=== PATIENT | female | born 1930 | race Caucasian/White ===

== ENCOUNTER 2016-10-31 10:08 | Outpatient (RCR) | payer MEDICARE, BC ==
[2016-10-25 06:32] VITALS: BP 159/64
[~2016-10-31 10:08] MED LIST: ASPIRIN 32325 MG/TAB PO; BISACODYL10 M1 RC; CALCIUM CARBON600 M1 PO; COLACE 100100 MG/CAP PO; FEOSOL325 MG PO; GOOD NEIGH1200 MG/15 PO; HCTZ 25MG25 MG PO; IRON 100 PLUS 21 TAB PO; LATANOPROST 2.2.5 ML OP; METFORMIN ER500 MG PO; PIOGLITAZONE HC30 MG PO; TIMOLOL MALEATE10 ML OP; TOPCARE PAIN R325 MG PO
[2016-11-01] MEDS ORDERED: TIMOLOL MALEATE10 ML OD (08:26)
== END 2017-01-08 09:20 | disposition home or self-care (01) ==
LOC: PT 10:08
DX: Z47.1 Aftercare following joint replacement surgery (principal); Z96.641 Presence of right artificial hip joint

== ENCOUNTER → 2016-12-05 | Outpatient (CLI) | payer MEDICARE, BC ==
[~2016-12-05] MED LIST changes: +ALEVE220 M1 PO; +TIMOLOL MALEATE10 ML OD
== END ==
LOC: LAB 10:09
DX: E11.9 Type 2 diabetes mellitus without complications (principal); I10 Essential (primary) hypertension

== ENCOUNTER 2017-06-08 11:24 | Emergency (ER) | payer MEDICARE, BC ==
[~2017-06-08] VITALS: Wt 50.0 kg
[~2017-06-08 11:24] MED LIST changes: -ALEVE220 M1 PO
[2017-06-08] MEDS ORDERED: ALEVE220 M1 PO (11:38)
[2017-06-08 16:46] VITALS: BP 146/78
== END 2017-06-08 16:45 | disposition other institution (70) ==
LOC: ED 11:24
DX: S72.492A Other fracture of lower end of left femur, initial encounter for closed fracture (principal); S82.832A Other fracture of upper and lower end of left fibula, initial encounter for closed fracture; W01.198A Fall on same level from slipping, tripping and stumbling with subsequent striking against other object, initial encounter; Y92.22 Religious institution as the place of occurrence of the external cause; I10 Essential (primary) hypertension; E11.9 Type 2 diabetes mellitus without complications; Z96.643 Presence of artificial hip joint, bilateral; M81.0 Age-related osteoporosis without current pathological fracture
CPT/HCPCS: J3010

== ENCOUNTER 2017-06-08 16:47 | Inpatient (IN) | payer MEDICARE, BC ==
[~2017-06-08] VITALS: Ht 160 cm; Wt 56.6 kg
[~2017-06-08 16:47] MED LIST changes: +ALEVE220 M1 PO
[2017-06-08 17:45] VITALS: BP 155/72
[2017-06-08 18:36] VITALS: BP 155/72
[2017-06-08 22:34] VITALS: BP 127/61
[2017-06-09 02:59] VITALS: BP 108/53
[2017-06-09 06:26] VITALS: BP 126/59
[2017-06-09 10:54] VITALS: BP 148/69
[2017-06-09 15:29] VITALS: BP 98/46
[2017-06-09 18:00] VITALS: BP 105/46; BP 133/56
[2017-06-09 22:37] VITALS: BP 113/55
[2017-06-10 03:01] VITALS: BP 106/55
[2017-06-10 06:20] VITALS: BP 121/56
[2017-06-10 11:09] VITALS: BP 124/57
[2017-06-10 15:08] VITALS: BP 110/58
[2017-06-10 18:15] VITALS: BP 117/50
[2017-06-10 23:01] VITALS: BP 109/54
[2017-06-11 03:00] VITALS: BP 119/52
[2017-06-11 06:19] VITALS: BP 147/74
[2017-06-11 11:16] VITALS: BP 131/68
[2017-06-11 15:14] VITALS: BP 138/66
[2017-06-11 18:04] VITALS: BP 113/52
[2017-06-11 23:21] VITALS: BP 139/64
[2017-06-12 02:58] VITALS: BP 134/54
[2017-06-12 06:22] VITALS: BP 118/66
[2017-06-12 11:20] VITALS: BP 117/57
[2017-06-12 15:11] VITALS: BP 111/51
[2017-06-12 18:16] VITALS: BP 128/58
[2017-06-12 23:09] VITALS: BP 111/54
[2017-06-13 02:46] VITALS: BP 121/52
[2017-06-13 06:33] VITALS: BP 121/59
== END 2017-06-13 07:33 | disposition swing bed (61) | DRG 543 ==
LOC: MED/SURG 16:47
PROVIDERS: ADMIT Family Medicine
DX: M80.052A Age-related osteoporosis with current pathological fracture, left femur, initial encounter for fracture (principal); N39.0 Urinary tract infection, site not specified; E87.1 Hypo-osmolality and hyponatremia; D62 Acute posthemorrhagic anemia; M80.062A Age-related osteoporosis with current pathological fracture, left lower leg, initial encounter for fracture; S82.65XA Nondisplaced fracture of lateral malleolus of left fibula, initial encounter for closed fracture; M81.0 Age-related osteoporosis without current pathological fracture; I10 Essential (primary) hypertension; E11.9 Type 2 diabetes mellitus without complications; K56.41 Fecal impaction; W01.0XXA Fall on same level from slipping, tripping and stumbling without subsequent striking against object, initial encounter; Y92.22 Religious institution as the place of occurrence of the external cause; Z96.643 Presence of artificial hip joint, bilateral
CPT/HCPCS: J0595; J0696; J1650; J1815; J1885; J2405; J3480; J7030

== ENCOUNTER 2017-06-12 16:53 | Inpatient (IN) | payer MEDICARE, BC ==
[~2017-06-12] VITALS: Ht 160 cm; Wt 48.0 kg
[2017-06-13 10:08] VITALS: BP 112/51
[2017-06-13 10:11] VITALS: BP 112/51
[2017-06-13 18:31] VITALS: BP 132/58
[2017-06-14 06:21] VITALS: BP 123/56
[2017-06-14 18:36] VITALS: BP 142/60
[2017-06-15 06:39] VITALS: BP 118/43
[2017-06-15 18:09] VITALS: BP 149/59
[2017-06-16 06:29] VITALS: BP 115/45; BP 132/52
[2017-06-16 18:00] VITALS: BP 144/54
[2017-06-17 06:38] VITALS: BP 153/56
[2017-06-17 18:22] VITALS: BP 158/58
[2017-06-18 06:35] VITALS: BP 134/55
[2017-06-18 18:23] VITALS: BP 148/55
[2017-06-19 06:18] VITALS: BP 151/59
[2017-06-19 18:48] VITALS: BP 152/57
[2017-06-20 06:18] VITALS: BP 150/65
[2017-06-20 18:04] VITALS: BP 166/56
[2017-06-21 06:18] VITALS: BP 131/52
[2017-06-21 18:01] VITALS: BP 137/53
[2017-06-22 06:25] VITALS: BP 149/59
[2017-06-22 18:22] VITALS: BP 126/53
[2017-06-23 06:27] VITALS: BP 134/54
[2017-06-23 18:00] VITALS: BP 148/65
[2017-06-24 06:29] VITALS: BP 137/50
[2017-06-24 18:34] VITALS: BP 152/67
[2017-06-25 06:27] VITALS: BP 128/55
[2017-06-25 18:18] VITALS: BP 137/50
[2017-06-26 06:25] VITALS: BP 145/59
[2017-06-26 18:02] VITALS: BP 158/66
[2017-06-27 06:31] VITALS: BP 129/46
[2017-06-27 18:16] VITALS: BP 156/59
[2017-06-28 06:24] VITALS: BP 156/66
[2017-06-28 18:37] VITALS: BP 134/53
[2017-06-29 06:28] VITALS: BP 156/66
[2017-06-29 18:57] VITALS: BP 155/60
[2017-06-30 06:30] VITALS: BP 137/63
[2017-06-30 18:56] VITALS: BP 154/52
[2017-07-01 06:32] VITALS: BP 133/50
[2017-07-01 18:08] VITALS: BP 151/56
[2017-07-02 06:37] VITALS: BP 135/62
[2017-07-02 18:00] VITALS: BP 150/57
[2017-07-03 06:38] VITALS: BP 132/61
[2017-07-03 18:29] VITALS: BP 145/60
[2017-07-04 06:29] VITALS: BP 159/68
[2017-07-04 18:24] VITALS: BP 145/59
[2017-07-05 06:26] VITALS: BP 118/80
[2017-07-05 19:00] VITALS: BP 133/54
[2017-07-06 06:21] VITALS: BP 127/54
[2017-07-06 18:26] VITALS: BP 151/58
[2017-07-07 06:43] VITALS: BP 122/50
[2017-07-07 18:00] VITALS: BP 150/57
[2017-07-08 06:22] VITALS: BP 143/57
[2017-07-08 18:13] VITALS: BP 139/59
[2017-07-09 06:31] VITALS: BP 141/56
[2017-07-09 18:22] VITALS: BP 123/55
[2017-07-10 06:20] VITALS: BP 131/61
[2017-07-10 19:17] VITALS: BP 127/58
[2017-07-11 06:53] VITALS: BP 142/57
[2017-07-11 18:24] VITALS: BP 157/55
[2017-07-12 07:22] VITALS: BP 154/45
[2017-07-12 18:51] VITALS: BP 126/62
[2017-07-13 06:45] VITALS: BP 140/62
[2017-07-13 18:10] VITALS: BP 146/54
[2017-07-14 06:28] VITALS: BP 155/56
[2017-07-14 18:31] VITALS: BP 133/48
[2017-07-15 06:31] VITALS: BP 115/57
[2017-07-15 18:23] VITALS: BP 142/53
[2017-07-16 06:33] VITALS: BP 141/58
[2017-07-16 18:24] VITALS: BP 147/63
[2017-07-17 06:23] VITALS: BP 136/56
[2017-07-17 18:40] VITALS: BP 133/51
[2017-07-18 06:28] VITALS: BP 151/49
[2017-07-18 18:37] VITALS: BP 128/50
[2017-07-19 06:27] VITALS: BP 144/62
[2017-07-19 18:33] VITALS: BP 138/51
[2017-07-20 06:33] VITALS: BP 155/52
[2017-07-20 18:12] VITALS: BP 139/50
[2017-07-21 06:35] VITALS: BP 121/56
[2017-07-21 18:16] VITALS: BP 127/44
[2017-07-22 06:21] VITALS: BP 137/63
[2017-07-22 18:00] VITALS: BP 131/51
[2017-07-23 06:24] VITALS: BP 138/58
[2017-07-23 18:20] VITALS: BP 141/55
[2017-07-24 07:29] VITALS: BP 128/52
[2017-07-24 18:53] VITALS: BP 133/52
[2017-07-25 06:47] VITALS: BP 139/61
[2017-07-25 18:19] VITALS: BP 143/52
[2017-07-26 06:30] VITALS: BP 137/56
[2017-07-26 17:54] VITALS: BP 142/58
[2017-07-27 06:52] VITALS: BP 134/47
[2017-07-27 18:28] VITALS: BP 127/54
[2017-07-28 06:42] VITALS: BP 134/49
[2017-07-28 18:41] VITALS: BP 139/52
[2017-07-29 06:03] VITALS: BP 126/41
[2017-07-29 18:37] VITALS: BP 140/50
[2017-07-30 06:46] VITALS: BP 119/50
[2017-07-30 18:23] VITALS: BP 145/56
[2017-07-31 06:33] VITALS: BP 140/57
[2017-07-31 18:18] VITALS: BP 125/37
[2017-08-01 06:21] VITALS: BP 136/53
[2017-08-01 18:18] VITALS: BP 136/55
[2017-08-02 06:28] VITALS: BP 130/61
[2017-08-02 18:22] VITALS: BP 138/54
[2017-08-03 06:43] VITALS: BP 132/62
[2017-08-03 18:32] VITALS: BP 144/64
[2017-08-04 06:47] VITALS: BP 124/57
[2017-08-04 18:23] VITALS: BP 142/54
[2017-08-05 06:26] VITALS: BP 115/52
[2017-08-05 18:59] VITALS: BP 129/49
[2017-08-06 06:27] VITALS: BP 136/64
[2017-08-06 17:52] VITALS: BP 148/53
[2017-08-07 06:29] VITALS: BP 150/61
[2017-08-07 18:36] VITALS: BP 143/56
[2017-08-08 06:21] VITALS: BP 125/52
[2017-08-08 18:31] VITALS: BP 149/79
[2017-08-09 06:25] VITALS: BP 127/48
[2017-08-09 18:08] VITALS: BP 129/48
[2017-08-10 05:30] VITALS: BP 139/55
[2017-08-10 18:22] VITALS: BP 152/60
[2017-08-11 06:13] VITALS: BP 138/45
[2017-08-11 17:48] VITALS: BP 126/49
[2017-08-12 06:42] VITALS: BP 148/57
[2017-08-12] MEDS ORDERED: GLUCOPHAGE PO (08:53)
[2017-08-12 18:13] VITALS: BP 114/53
[2017-08-13 06:39] VITALS: BP 141/51
[2017-08-13 18:31] VITALS: BP 138/48
[2017-08-14 06:41] VITALS: BP 151/58
[2017-08-14] MEDS ORDERED: MULTIVIT PO (07:16)
== END 2017-08-14 09:20 | disposition home health service (06) | DRG 560 ==
LOC: PACU 16:53 → MED/SURG 19:11
PROVIDERS: ADMIT Nurse Practitioner Family
DX: S72.92XD Unspecified fracture of left femur, subsequent encounter for closed fracture with routine healing (principal); N39.0 Urinary tract infection, site not specified; D62 Acute posthemorrhagic anemia; S82.62XD Displaced fracture of lateral malleolus of left fibula, subsequent encounter for closed fracture with routine healing; Z66 Do not resuscitate; L89.622 Pressure ulcer of left heel, stage 2; I10 Essential (primary) hypertension; E11.9 Type 2 diabetes mellitus without complications; M80.852D Other osteoporosis with current pathological fracture, left femur, subsequent encounter for fracture with routine healing; W01.0XXD Fall on same level from slipping, tripping and stumbling without subsequent striking against object, subsequent encounter; B96.20 Unspecified Escherichia coli [E. coli] as the cause of diseases classified elsewhere; Z79.4 Long term (current) use of insulin; R53.81 Other malaise
CPT/HCPCS: J0696; J1650; J1815; L4360

== ENCOUNTER → 2017-08-22 | Outpatient (CLI) | payer MEDICARE, BC ==
[2017-08-14 06:41] VITALS: BP 151/58
[~2017-08-22] MED LIST changes: +GLUCOPHAGE PO; +MULTIVIT PO
== END ==
LOC: LAB 12:41
DX: D64.9 Anemia, unspecified (principal)

== ENCOUNTER → 2017-08-28 | Outpatient (CLI) | payer MEDICARE, BC ==
[2017-08-14 06:41] VITALS: BP 151/58
== END ==
LOC: RAD 12:16
DX: M79.672 Pain in left foot (principal); M85.872 Other specified disorders of bone density and structure, left ankle and foot; M25.572 Pain in left ankle and joints of left foot

== ENCOUNTER → 2017-09-19 | Outpatient (CLI) | payer MEDICARE, BC ==
[2017-09-19 12:35] LABS: ALBUMIN 4.3 g/dL (3.5-5.0); BUN/CREATININE RATIO 29.4 (6.0-26.0); CALCIUM 10.8 mg/dL (8.4-10.2); POTASSIUM 4.8 mmol/L (3.6-5.0); TOTAL BILIRUBIN 0.9 mg/dL (0.2-1.3); TOTAL PROTEIN 7.7 g/dL (6.3-8.2)
[2017-09-19 13:46] LABS: EOS # 0.1 (0.04-0.40); EOS % 1.5 % (1.0-5.0); HEMATOCRIT 34.2 % (37.0-47.0); HEMOGLOBIN 10.6 g/dL (12.5-16.0); LYMPH# 1.9 (1.50-4.00); MEAN CELL VOLUME 89 fl (78-100); MEAN CORPUSCULAR HEMOGLOBIN 28 pg (27-31); MEAN CORPUSCULAR HGB CONC 31 g/dL (33-37); MEAN PLATELET VOLUME 10.2 fl (7.4-10.4); MONO # 0.6 (0.20-0.80); NEU # 2.6 (1.40-6.50); PLATELET COUNT 235 K/mm3 (130-400); RED BLOOD COUNT 3.84 M/mm3 (4.10-5.30); RED CELL DISTRIBUTION WIDTH 13.9 % (11.5-14.5); WHITE BLOOD COUNT 5.2 K/mm3 (4.8-10.8)
== END ==
LOC: LAB 12:08
PROVIDERS: Internal Medicine
DX: E11.9 Type 2 diabetes mellitus without complications (principal); I10 Essential (primary) hypertension

== ENCOUNTER → 2018-01-01 | Outpatient (CLI) | payer MEDICARE, BC ==
[2018-01-01 10:22] LABS: EOS # 0.1 (0.04-0.40); EOS % 3.1 % (1.0-5.0); HEMATOCRIT 38.6 % (37.0-47.0); HEMOGLOBIN 11.6 g/dL (12.5-16.0); LYMPH# 1.1 (1.50-4.00); MEAN CELL VOLUME 90 fl (78-100); MEAN CORPUSCULAR HEMOGLOBIN 27 pg (27-31); MEAN CORPUSCULAR HGB CONC 30 g/dL (33-37); MEAN PLATELET VOLUME 10.1 fl (7.4-10.4); MONO # 0.5 (0.20-0.80); NEU # 2.4 (1.40-6.50); PLATELET COUNT 217 K/mm3 (130-400); RED BLOOD COUNT 4.29 M/mm3 (4.10-5.30); RED CELL DISTRIBUTION WIDTH 14.9 % (11.5-14.5); WHITE BLOOD COUNT 4.2 K/mm3 (4.8-10.8)
[2018-01-01 10:23] LABS: ALBUMIN 4.1 g/dL (3.5-5.0); BUN/CREATININE RATIO 23.9 (6.0-26.0); POTASSIUM 3.9 mmol/L (3.6-5.0); TOTAL PROTEIN 7.1 g/dL (6.3-8.2)
== END ==
LOC: LAB 09:54
PROVIDERS: Internal Medicine
DX: E11.9 Type 2 diabetes mellitus without complications (principal); I10 Essential (primary) hypertension; D64.9 Anemia, unspecified; Z88.5 Allergy status to narcotic agent; Z88.2 Allergy status to sulfonamides

== ENCOUNTER → 2018-03-12 | Outpatient (CLI) | payer MEDICARE, BC | LOC: MAMMO 08:51 → RAD 09:15 | DX: Z13.820 Encounter for screening for osteoporosis (principal); M81.0 Age-related osteoporosis without current pathological fracture; Z88.5 Allergy status to narcotic agent; Z88.2 Allergy status to sulfonamides ==

== ENCOUNTER → 2018-04-13 | Outpatient (CLI) | payer MEDICARE, BC ==
[2018-04-13 17:19] LABS: ALBUMIN 4.3 g/dL (3.5-5.0); BUN/CREATININE RATIO 37.1 (6.0-26.0); CALCIUM 9.9 mg/dL (8.4-10.2); POTASSIUM 4.5 mmol/L (3.6-5.0); TOTAL BILIRUBIN 0.7 mg/dL (0.2-1.3); TOTAL PROTEIN 7.2 g/dL (6.3-8.2)
== END ==
LOC: RAD 15:19
PROVIDERS: Internal Medicine
DX: M81.0 Age-related osteoporosis without current pathological fracture (principal); M54.6 Pain in thoracic spine; M54.5 Low back pain; E11.9 Type 2 diabetes mellitus without complications; M47.814 Spondylosis without myelopathy or radiculopathy, thoracic region; M47.816 Spondylosis without myelopathy or radiculopathy, lumbar region; M41.86 Other forms of scoliosis, lumbar region

== ENCOUNTER → 2019-08-05 | Outpatient (CLI) | payer MEDICARE, BC ==
[2019-08-05 11:34] LABS: HEMATOCRIT 36.8 % (37.0-47.0); HEMOGLOBIN 11.3 g/dL (12.5-16.0); MEAN CELL VOLUME 92 fl (78-100); MEAN CORPUSCULAR HEMOGLOBIN 28 pg (27-31); MEAN CORPUSCULAR HGB CONC 31 g/dL (33-37); MEAN PLATELET VOLUME 10.1 fl (7.4-10.4); PLATELET COUNT 182 K/mm3 (130-400); RED CELL DISTRIBUTION WIDTH 14.5 % (11.5-14.5); WHITE BLOOD COUNT 3.7 K/mm3 (4.8-10.8)
[2019-08-05 11:36] LABS: ALBUMIN 4.3 g/dL (3.4-4.8)
[2019-08-05 11:39] LABS: TOTAL PROTEIN 7.1 g/dL (6.2-8.1)
[2019-08-05 11:51] LABS: BAND 2 % (0-10); LYMPHOCYTE 30 % (20-51); MONOCYTE 15 % (3-10); NEUTROPHILS 51 % (42-75)
[2019-08-05 11:52] LABS: URINE APPEARANCE CLEAR; URINE BILIRUBIN NEGATIVE (NEGATIVE); URINE BLOOD TRACE (NEGATIVE); URINE COLOR YELLOW; URINE GLUCOSE NEGATIVE (NEGATIVE); URINE KETONE NEGATIVE (NEGATIVE); URINE LEUKOCYTE ESTERASE NEGATIVE (NEGATIVE); URINE MUCUS PRESENT (NOT PRESENT); URINE NITRATE NEGATIVE (NEGATIVE); URINE PROTEIN(semi-quant) TRACE mg/dL (NEGATIVE); URINE UROBILINOGEN NORMAL (NORMAL); URINE WBC 0-1 /hpf (0-3)
== END ==
LOC: LAB 11:17
PROVIDERS: Internal Medicine
DX: S82.832D Other fracture of upper and lower end of left fibula, subsequent encounter for closed fracture with routine healing (principal); E11.9 Type 2 diabetes mellitus without complications; I10 Essential (primary) hypertension; M81.0 Age-related osteoporosis without current pathological fracture

== ENCOUNTER → 2019-08-24 | Outpatient (CLI) | payer MEDICARE, BC ==
[2019-08-24 14:46] LABS: PH-URINE 5.5 (5.0 - 8.0); URINE APPEARANCE HAZY; URINE BILIRUBIN NEGATIVE (NEGATIVE); URINE BLOOD NEGATIVE (NEGATIVE); URINE COLOR YELLOW; URINE GLUCOSE NEGATIVE (NEGATIVE); URINE KETONE NEGATIVE (NEGATIVE); URINE LEUKOCYTE ESTERASE 1+ (NEGATIVE); URINE NITRATE NEGATIVE (NEGATIVE); URINE PROTEIN(semi-quant) TRACE mg/dL (NEGATIVE); URINE UROBILINOGEN NORMAL (NORMAL)
[2019-08-24 14:47] LABS: URINE WBC 16-30 /hpf (0-3)
== END ==
LOC: LAB 13:32
PROVIDERS: Internal Medicine
DX: N30.00 Acute cystitis without hematuria (principal)

== ENCOUNTER → 2019-11-04 | Outpatient (CLI) | payer MEDICARE, BC ==
[2019-11-04 10:50] LABS: EOS % 0.1 % (1.0-5.0); HEMATOCRIT 36.8 % (37.0-47.0); HEMOGLOBIN 11.1 g/dL (12.5-16.0); LYMPH# 1.1 (1.50-4.00); MEAN CELL VOLUME 92 fl (78-100); MEAN CORPUSCULAR HEMOGLOBIN 28 pg (27-31); MEAN CORPUSCULAR HGB CONC 30 g/dL (33-37); MEAN PLATELET VOLUME 9.9 fl (7.4-10.4); MONO # 0.7 (0.20-0.80); NEU # 5.6 (1.40-6.50); PLATELET COUNT 167 K/mm3 (130-400); RED CELL DISTRIBUTION WIDTH 14.2 % (11.5-14.5); WHITE BLOOD COUNT 7.4 K/mm3 (4.8-10.8)
[2019-11-04 11:14] LABS: ALBUMIN 4.2 g/dL (3.4-4.8); POTASSIUM 3.9 mmol/L (3.5-5.1)
[2019-11-04 11:15] LABS: CALCIUM 9.8 mg/dL (8.3-10.5)
[2019-11-04 11:16] LABS: TOTAL PROTEIN 7.3 g/dL (6.2-8.1)
== END ==
LOC: LAB 10:37
PROVIDERS: Internal Medicine
DX: R05 Cough (principal); R06.02 Shortness of breath